=== PATIENT | male | born 1940 | race Caucasian/White ===

== ENCOUNTER 2017-04-08 13:21 | Inpatient (IN) | payer MEDICARE, BC ==
[2017-04-08] MEDS ORDERED: NALOXONE (0.4 MG/ML) INJ IV (14:30)
[2017-04-08] MEDS ORDERED: NACL 0.9% 3 ML SYG IV (14:30)
[2017-04-08] MEDS ORDERED: LACTULOSE 30ML CUP PO (14:30)
[2017-04-08] MEDS ORDERED: ACETAMINOPHEN 325 MG TAB PO ×2 (14:30)
[2017-04-08] MEDS ORDERED: ONDANSETRON 4 MG INJ IV (14:30)
[2017-04-08] MEDS ORDERED: BISACODYL 10 MG SUPP PR (14:30)
[2017-04-08] MEDS ORDERED: MAGNESIUM HYDROXIDE 30ML CUP PO (14:30)
[2017-04-08 14:52] LABS: ADD UMIC NO; UR ASCORBIC ACID NEGATIVE (NEGATIVE); UR BILIRUBIN (Dip) NEGATIVE (NEGATIVE); UR BLOOD (Dip) NEGATIVE (NEGATIVE); UR CLARITY CLEAR (CLEAR); UR COLOR YELLOW (YELLOW); UR GLUCOSE (Dip) NEGATIVE (NEGATIVE); UR KETONES (Dip) NEGATIVE (NEGATIVE); UR LEUKOCYTE ESTERASE (Dip) NEGATIVE Leu/ul (NEGATIVE); UR NITRITE (Dip) NEGATIVE (NEGATIVE); UR SPECIFIC GRAVITY (Dip) 1.015 (1.003-1.030); UR TOTAL PROTEIN (Dip) NEGATIVE (NEGATIVE); UR UROBILINOGEN (Dip) NEGATIVE (NEGATIVE)
[2017-04-08] MEDS: OXYCODONE/ACETAMINOPHEN (5/325) TAB PO (18:28)
[2017-04-08] MEDS: METHOCARBAMOL 500 MG TAB PO (20:16)
[2017-04-08] MEDS: DOCUSATE SODIUM 100 MG CAP PO (20:20)
[2017-04-09 06:37] LABS: ADD MAN DIFF? NO
[2017-04-09 06:46] LABS: WHITE BLOOD COUNT 6.4 10^3/ul (4.8-10.8)
[2017-04-09 06:46] LABS: BASOPHILS % 0.2 % (0.0-2.0); EOSINOPHILS # 0.1 10^3/ul (0.0-0.5); EOSINOPHILS % 0.9 % (0.0-7.0); HEMATOCRIT 38.6 % (42.0-52.0); HEMOGLOBIN 12.9 g/dl (14.0-18.0); LYMPHOCYTES % 16.2 % (15.0-51.0); MEAN CORPUSCULAR HEMOGLOBIN 31.7 pg (29.0-33.0); MEAN CORPUSCULAR HGB CONC 33.4 g/dl (32.0-37.0); MEAN CORPUSCULAR VOLUME 94.8 fl (82.0-101.0); MEAN PLATELET VOLUME 9.3 fl (7.4-10.4); MONOCYTE # 0.5 10^3/ul (0.3-0.9); MONOCYTES % 7.6 % (0.0-11.0); NEUTROPHIL # 4.8 10^3/ul (1.6-7.5); NEUTROPHILS % 74.3 % (39.0-77.0); PLATELET COUNT 183 10^3/UL (140-415); RED BLOOD COUNT 4.07 10^6/ul (4.70-6.10); RED CELL DISTRIBUTION WIDTH 13.2 % (11.5-14.5)
[2017-04-09 07:07] LABS: ALANINE AMINOTRANSFERASE 30 IU/L (13-69); ALBUMIN 2.7 g/dl (3.3-4.9); ALBUMIN/GLOBULIN RATIO 1.08; ALKALINE PHOSPHATASE 39 IU/L (42-121); ANION GAP 9 (8-16); ASPARTATE AMINO TRANSFERASE 17 IU/L (15-46); BILIRUBIN,INDIRECT 0.6 mg/dl (0-1.1); BILIRUBIN,TOTAL 0.6 mg/dl (0.2-1.3); BLOOD UREA NITROGEN 21 mg/dl (7-20); CALCIUM 8.4 mg/dl (8.4-10.2); CARBON DIOXIDE 32 mmol/L (21-31); CHLORIDE 102 mmol/L (97-110); CREATININE 1.01 mg/dl (0.61-1.24); GLUCOSE 89 mg/dl (70-220); SODIUM 139 mmol/L (135-144); TOTAL PROTEIN 5.2 g/dl (6.1-8.1)
[2017-04-09] MEDS: TAMSULOSIN (SR) 0.4 MG CAP PO (08:29)
[2017-04-09] MEDS: DOCUSATE SODIUM 100 MG CAP PO ×3 (08:29→20:36)
[2017-04-09] MEDS: METOPROLOL (XL) 25 MG TAB PO (08:29)
[2017-04-09] MEDS: CITALOPRAM 20 MG TAB PO (08:29)
[2017-04-09] MEDS: LISINOPRIL 10 MG TAB PO (08:30)
[2017-04-09] MEDS: OXYCODONE/ACETAMINOPHEN (5/325) TAB PO ×3 (08:32→16:45)
[2017-04-09] MEDS: METHOCARBAMOL 500 MG TAB PO (20:35)
[2017-04-10] MEDS: OXYCODONE/ACETAMINOPHEN (5/325) TAB PO ×6 (02:05→22:37)
[2017-04-10] MEDS: DOCUSATE SODIUM 100 MG CAP PO ×2 (08:38→20:47)
[2017-04-10] MEDS: TAMSULOSIN (SR) 0.4 MG CAP PO (08:38)
[2017-04-10] MEDS: CITALOPRAM 20 MG TAB PO (08:39)
[2017-04-10] MEDS: METOPROLOL (XL) 25 MG TAB PO (08:39)
[2017-04-10] MEDS: LISINOPRIL 10 MG TAB PO (08:39)
[2017-04-10] MEDS: MAGNESIUM HYDROXIDE 30ML CUP PO (08:40)
[2017-04-10] MEDS ORDERED: OXYCODONE/ACETAMINOPHEN (5/325) TAB PO ×2 (09:30→14:00)
[2017-04-11] MEDS: TAMSULOSIN (SR) 0.4 MG CAP PO (08:30)
[2017-04-11] MEDS: CITALOPRAM 20 MG TAB PO (08:30)
[2017-04-11] MEDS: METOPROLOL (XL) 25 MG TAB PO (08:31)
[2017-04-11] MEDS: OXYCODONE/ACETAMINOPHEN (5/325) TAB PO ×4 (08:31→22:35)
[2017-04-11] MEDS: DOCUSATE SODIUM 100 MG CAP PO ×2 (08:32→21:00)
[2017-04-11] MEDS: LISINOPRIL 10 MG TAB PO (08:32)
[2017-04-12] MEDS: OXYCODONE/ACETAMINOPHEN (5/325) TAB PO ×4 (07:42→21:51)
[2017-04-12] MEDS: DOCUSATE SODIUM 100 MG CAP PO ×2 (08:40→21:00)
[2017-04-12] MEDS: CITALOPRAM 20 MG TAB PO (08:40)
[2017-04-12] MEDS: METOPROLOL (XL) 25 MG TAB PO (08:40)
[2017-04-12] MEDS: LISINOPRIL 10 MG TAB PO (08:41)
[2017-04-12] MEDS: TAMSULOSIN (SR) 0.4 MG CAP PO (08:41)
[2017-04-12] MEDS: BACLOFEN 10 MG TAB PO ×2 (12:38→21:51)
[2017-04-12 15:39] LABS: ADD UMIC NO; UR ASCORBIC ACID NEGATIVE (NEGATIVE); UR BILIRUBIN (Dip) NEGATIVE (NEGATIVE); UR BLOOD (Dip) NEGATIVE (NEGATIVE); UR CLARITY CLEAR (CLEAR); UR COLOR STRAW (YELLOW); UR GLUCOSE (Dip) NEGATIVE (NEGATIVE); UR KETONES (Dip) NEGATIVE (NEGATIVE); UR LEUKOCYTE ESTERASE (Dip) NEGATIVE Leu/ul (NEGATIVE); UR NITRITE (Dip) NEGATIVE (NEGATIVE); UR SPECIFIC GRAVITY (Dip) 1.008 (1.003-1.030); UR TOTAL PROTEIN (Dip) NEGATIVE (NEGATIVE); UR UROBILINOGEN (Dip) NEGATIVE (NEGATIVE)
[2017-04-13] MEDS: OXYCODONE/ACETAMINOPHEN (5/325) TAB PO ×3 (08:18→21:17)
[2017-04-13] MEDS: BACLOFEN 10 MG TAB PO ×3 (08:18→21:17)
[2017-04-13] MEDS: TAMSULOSIN (SR) 0.4 MG CAP PO (08:18)
[2017-04-13] MEDS: CITALOPRAM 20 MG TAB PO (08:19)
[2017-04-13] MEDS: LISINOPRIL 10 MG TAB PO (08:19)
[2017-04-13] MEDS: DOCUSATE SODIUM 100 MG CAP PO ×2 (08:19→21:17)
[2017-04-13] MEDS: METOPROLOL (XL) 25 MG TAB PO (08:19)
[2017-04-13 09:04] LABS: WHITE BLOOD COUNT 7.1 10^3/ul (4.8-10.8)
[2017-04-13 09:04] LABS: ADD MAN DIFF? NO; BASOPHILS % 0.1 % (0.0-2.0); EOSINOPHILS # 0.2 10^3/ul (0.0-0.5); EOSINOPHILS % 2.1 % (0.0-7.0); HEMOGLOBIN 13.7 g/dl (14.0-18.0); LYMPHOCYTES # 1.1 10^3/ul (0.8-2.9); LYMPHOCYTES % 16.2 % (15.0-51.0); MEAN CORPUSCULAR HEMOGLOBIN 32.4 pg (29.0-33.0); MEAN CORPUSCULAR HGB CONC 34.3 g/dl (32.0-37.0); MEAN CORPUSCULAR VOLUME 94.6 fl (82.0-101.0); MEAN PLATELET VOLUME 9.1 fl (7.4-10.4); MONOCYTE # 0.6 10^3/ul (0.3-0.9); MONOCYTES % 8.8 % (0.0-11.0); NEUTROPHIL # 5.1 10^3/ul (1.6-7.5); NEUTROPHILS % 72.1 % (39.0-77.0); PLATELET COUNT 220 10^3/UL (140-415); RED BLOOD COUNT 4.23 10^6/ul (4.70-6.10); RED CELL DISTRIBUTION WIDTH 13.2 % (11.5-14.5)
[2017-04-13 09:44] LABS: ALANINE AMINOTRANSFERASE 33 IU/L (13-69); ALBUMIN 3.1 g/dl (3.3-4.9); ALBUMIN/GLOBULIN RATIO 1.29; ALKALINE PHOSPHATASE 45 IU/L (42-121); ANION GAP 10 (8-16); ASPARTATE AMINO TRANSFERASE 14 IU/L (15-46); BILIRUBIN,INDIRECT 0.5 mg/dl (0-1.1); BILIRUBIN,TOTAL 0.5 mg/dl (0.2-1.3); BLOOD UREA NITROGEN 17 mg/dl (7-20); CALCIUM 8.7 mg/dl (8.4-10.2); CARBON DIOXIDE 32 mmol/L (21-31); CHLORIDE 101 mmol/L (97-110); CREATININE 0.98 mg/dl (0.61-1.24); GLUCOSE 82 mg/dl (70-220); POTASSIUM 4.2 mmol/L (3.5-5.1); SODIUM 139 mmol/L (135-144); TOTAL PROTEIN 5.5 g/dl (6.1-8.1)
[2017-04-13 10:25] LABS: PROSTATE SPECIFIC ANTIGEN 1.6 ng/ml (0.0-4.0)
[2017-04-13] MEDS: traMADol 50 MG TAB PO (11:20)
[2017-04-14] MEDS: OXYCODONE/ACETAMINOPHEN (5/325) TAB PO (06:55)
[2017-04-14] MEDS: DOCUSATE SODIUM 100 MG CAP PO ×2 (08:49→20:41)
[2017-04-14] MEDS: CITALOPRAM 20 MG TAB PO (08:49)
[2017-04-14] MEDS: TAMSULOSIN (SR) 0.4 MG CAP PO (08:50)
[2017-04-14] MEDS: BACLOFEN 10 MG TAB PO ×3 (08:50→20:41)
[2017-04-14] MEDS: LISINOPRIL 10 MG TAB PO (08:50)
[2017-04-14] MEDS: METOPROLOL (XL) 25 MG TAB PO (09:59)
[2017-04-15] MEDS: METOPROLOL (XL) 25 MG TAB PO (06:55)
[2017-04-15] MEDS: CITALOPRAM 20 MG TAB PO (08:40)
[2017-04-15] MEDS: DOCUSATE SODIUM 100 MG CAP PO ×2 (08:40→20:48)
[2017-04-15] MEDS: BACLOFEN 10 MG TAB PO ×3 (08:40→20:45)
[2017-04-15] MEDS: TAMSULOSIN (SR) 0.4 MG CAP PO (08:40)
[2017-04-15] MEDS: LISINOPRIL 10 MG TAB PO (08:41)
[2017-04-15] MEDS: traMADol 50 MG TAB PO (09:45)
[2017-04-15] MEDS: AMLODIPINE 2.5 MG TAB PO (20:47)
[2017-04-16] MEDS: LISINOPRIL 10 MG TAB PO (09:22)
[2017-04-16] MEDS: BACLOFEN 10 MG TAB PO ×3 (09:22→20:10)
[2017-04-16] MEDS: TAMSULOSIN (SR) 0.4 MG CAP PO (09:22)
[2017-04-16] MEDS: DOCUSATE SODIUM 100 MG CAP PO ×2 (09:22→20:31)
[2017-04-16] MEDS: CITALOPRAM 20 MG TAB PO (09:23)
[2017-04-16] MEDS: METOPROLOL (XL) 25 MG TAB PO (09:23)
[2017-04-16] MEDS: FINASTERIDE 5 MG TAB PO (12:26)
[2017-04-16] MEDS: QUETIAPINE 25 MG TAB PO (20:10)
[2017-04-16] MEDS: DOXAZOSIN 4 MG TAB PO (20:37)
[2017-04-17] MEDS: OXYCODONE/ACETAMINOPHEN (5/325) TAB PO (08:26)
[2017-04-17] MEDS: DOCUSATE SODIUM 100 MG CAP PO ×2 (08:26→21:00)
[2017-04-17] MEDS: BACLOFEN 10 MG TAB PO ×3 (08:26→20:42)
[2017-04-17] MEDS: FINASTERIDE 5 MG TAB PO (08:26)
[2017-04-17] MEDS: CITALOPRAM 20 MG TAB PO (08:26)
[2017-04-17] MEDS: METOPROLOL (XL) 25 MG TAB PO (08:27)
[2017-04-17] MEDS: LISINOPRIL 10 MG TAB PO (08:27)
[2017-04-17] MEDS ORDERED: OXYCODONE/ACETAMINOPHEN (10/325) TAB PO (10:30)
[2017-04-17] MEDS: OXYCODONE/ACETAMINOPHEN (10/325) TAB PO (13:56)
[2017-04-17] MEDS: GABAPENTIN 100 MG CAP PO ×2 (13:57→20:42)
[2017-04-17] MEDS: DOXAZOSIN 4 MG TAB PO (21:00)
[2017-04-18] MEDS: DOCUSATE SODIUM 100 MG CAP PO ×3 (09:29→20:13)
[2017-04-18] MEDS: BACLOFEN 10 MG TAB PO ×3 (09:30→20:07)
[2017-04-18] MEDS: FINASTERIDE 5 MG TAB PO (09:30)
[2017-04-18] MEDS: GABAPENTIN 100 MG CAP PO ×3 (09:32→20:07)
[2017-04-18] MEDS: LISINOPRIL 10 MG TAB PO (09:32)
[2017-04-18] MEDS: CITALOPRAM 20 MG TAB PO (09:32)
[2017-04-18] MEDS: METOPROLOL (XL) 25 MG TAB PO (09:32)
[2017-04-18] MEDS: DOXAZOSIN 4 MG TAB PO (20:07)
[2017-04-19] MEDS: DOCUSATE SODIUM 100 MG CAP PO ×2 (09:00→09:12)
[2017-04-19] MEDS: BACLOFEN 10 MG TAB PO ×2 (09:09→12:55)
[2017-04-19] MEDS: OXYCODONE/ACETAMINOPHEN (10/325) TAB PO (09:09)
[2017-04-19] MEDS: CITALOPRAM 20 MG TAB PO (09:09)
[2017-04-19] MEDS: METOPROLOL (XL) 25 MG TAB PO (09:10)
[2017-04-19] MEDS: GABAPENTIN 100 MG CAP PO ×2 (09:10→12:59)
[2017-04-19] MEDS: FINASTERIDE 5 MG TAB PO (09:10)
[2017-04-19] MEDS: LISINOPRIL 10 MG TAB PO (09:11)
== END 2017-04-19 13:39 | disposition home health service (06) | DRG 560 ==
LOC: VRC 13:21
PROC: F08Z1ZZ Dressing Techniques Treatment (ICD-10-PCS; principal; 2017-04-12)
PROC: F08Z0ZZ Bathing/Showering Techniques Treatment (ICD-10-PCS; 2017-04-12)
PROC: F08Z1ZZ Dressing Techniques Treatment (ICD-10-PCS; 2017-04-12)
PROC: F07Z5ZZ Bed Mobility Treatment (ICD-10-PCS; 2017-04-12)
PROC: F07Z8ZZ Transfer Training Treatment (ICD-10-PCS; 2017-04-12)
PROC: F07Z9ZZ Gait Training/Functional Ambulation Treatment (ICD-10-PCS; 2017-04-12)
DX: Z47.89 Encounter for other orthopedic aftercare (principal); F05 Delirium due to known physiological condition; F33.1 Major depressive disorder, recurrent, moderate; M54.17 Radiculopathy, lumbosacral region; G89.29 Other chronic pain; M43.17 Spondylolisthesis, lumbosacral region; I10 Essential (primary) hypertension; N35.9 Urethral stricture, unspecified; Z85.46 Personal history of malignant neoplasm of prostate; Z92.3 Personal history of irradiation; R33.8 Other retention of urine; M43.16 Spondylolisthesis, lumbar region; M54.16 Radiculopathy, lumbar region; F09 Unspecified mental disorder due to known physiological condition
CPT/HCPCS: 80053; 81003; 84153; 84154; 85025; 87081; 87086; 97110; 97116; 97150; 97163; 97166; 97530; 97535; 97542